=== PATIENT | male | born 1975 | race Caucasian/White ===

== ENCOUNTER 2020-09-04 13:14 | Outpatient (CLI) | payer BC ==
[~2020-09-04 13:14] MED LIST: Magnevist 469MG/ML 20 ML VIAL ONE
--- NOTE | 2020-09-04 16:05 | MRI ---
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 COMPARISON: Noncontrast MRI of 06/06/20. TECHNIQUE: Multiple sequences obtained in axial and sagittal planes, pre and post IV injection of gadolinium-bas ed contrast agent: 20 mL Multihance. FINDINGS: Five lumbar type vertebrae. Vertebral body heights and bone marrow signal are normal. Generous calibe r of spinal canal and thecal sac throughout all levels, especially in the upper sacrum at S1 and S2. Bilateral L5 pars interarticularis defects causing prominent grade I or II anterolisthesis of L5 on S 1, and associated high grade degenerative disc disease at that level, with high grade disc space narr owing, disc desiccation, and diffuse disc bulge. Mild to moderate right neural foraminal stenosis in the craniocaudal dimension mildly indenting the e xiting right L5 nerve root. Severe left neural foraminal stenosis with severe chronic compression and deformation of exiting left L5 nerve root. The L1-2 through L4-5 intervertebral discs are essentially normal. No neural foraminal stenosis throu gh those levels. Mild to moderate degenerative disc disease at T12-L1. Conus medullaris terminates at L1-2. A few centimeters caudal to the conus tip, there is an approximately 1.5 x 1.2 x 1.5 cm heterogeneous ly enhancing solid extramedullary-intradural mass at L2. It has mixed intermediate signal characteris tics on T2WI, and contains a few tiny cystic components. It displaces cauda equina around it. There i s a small 0.5 cm cyst abutting its left posterolateral surface. There is no other focus of abnormal enhancement in the rest of the spinal canal, and none in the neur al foramina. IMPRESSION: 1. 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 Differential diagnosis is intr adural Schwannoma versus ependymoma. This is less likely to represent a drop metastasis. 2. Prominent grade I or II spondylolisthesis at L5-S1, due to bilateral L5 spondylolysis, causin g severe degenerative disc disease. 3. This is associated with severe left L5-S1 neural foraminal stenosis with chronic severe compr ession of the exiting left L5 nerve root. 4. No neural foraminal stenosis at any other level, and no central spinal canal stenosis at any level. GRISELDA Pedersen POS: JIN
== END 2020-09-04 13:15 | disposition home or self-care (01) ==
LOC: TBSIIMAG 13:14
PROVIDERS: ATTEND Surgery
DX: M47.26 Other spondylosis with radiculopathy, lumbar region (principal); D36.10 Benign neoplasm of peripheral nerves and autonomic nervous system, unspecified; M43.17 Spondylolisthesis, lumbosacral region; M51.16 Intervertebral disc disorders with radiculopathy, lumbar region
CPT/HCPCS: 72158; A9579

== ENCOUNTER 2021-03-17 14:18 | Outpatient (CLI) | payer BC | END 2021-03-17 14:19 | disposition home or self-care (01) | LOC: TBSIIMAG 14:18 | PROVIDERS: ATTEND Surgery | DX: D36.10 Benign neoplasm of peripheral nerves and autonomic nervous system, unspecified (principal); M54.16 Radiculopathy, lumbar region; M43.17 Spondylolisthesis, lumbosacral region; Z98.1 Arthrodesis status | CPT/HCPCS: 72158; A9579 ==

== ENCOUNTER 2022-05-13 14:30 | Outpatient (CLI) | payer BC | END 2022-05-13 14:31 | disposition home or self-care (01) | LOC: TBSIIMAG 14:30 | PROVIDERS: ATTEND Surgery | DX: D33.4 Benign neoplasm of spinal cord (principal); M54.16 Radiculopathy, lumbar region; M51.37 Other intervertebral disc degeneration, lumbosacral region; M43.17 Spondylolisthesis, lumbosacral region | CPT/HCPCS: 72158 ==